=== PATIENT | male | born 1960 | race Hispanic/Latino ===

== ENCOUNTER 2019-01-27 08:13 | Day surgery (SDC) | payer MEDICAID ==
[~2019-01-27] VITALS: Ht 154.9 cm; Wt 57.1 kg
[~2019-01-27 08:13] MED LIST: SODIUM CHLORIDE 0.9% 1000ML 1,000 ML IV ONE
[2019-01-27 09:11] VITALS: BP 116/76
[2019-01-27] MEDS ORDERED: PROPOFOL 10 MG/ML 20ML VIAL IV ONE (10:32)
[2019-01-27] MEDS ORDERED: LIDOCAINE HCL 1% 20 ML VIAL ONE (10:33)
[2019-01-27 10:46] VITALS: BP 92/72
[2019-01-27 10:51] VITALS: BP 90/69
[2019-01-27 10:56] VITALS: BP 111/73
[2019-01-27 11:05] VITALS: BP 110/74
== END 2019-01-27 11:15 | disposition home or self-care (01) ==
LOC: ENDO 08:13 → DAH 08:13 → ENDO 11:15
PROVIDERS: ATTEND Internal Medicine Gastroenterology
DX: K76.6 Portal hypertension (principal); K74.60 Unspecified cirrhosis of liver; K31.89 Other diseases of stomach and duodenum; R13.10 Dysphagia, unspecified; R18.8 Other ascites; B18.2 Chronic viral hepatitis C; F10.20 Alcohol dependence, uncomplicated; F41.9 Anxiety disorder, unspecified; F32.9 Major depressive disorder, single episode, unspecified; Z80.0 Family history of malignant neoplasm of digestive organs; Z87.891 Personal history of nicotine dependence; Z88.5 Allergy status to narcotic agent; Z88.8 Allergy status to other drugs, medicaments and biological substances; Z79.899 Other long term (current) drug therapy
CPT/HCPCS: 43235; A4606; J2704; J7030; 43239

== ENCOUNTER → 2019-06-22 | Outpatient (CLI) | payer MEDICAID | END | disposition home or self-care (01) | LOC: RAH 11:01 | PROVIDERS: ATTEND Family Medicine | DX: R07.81 Pleurodynia (principal) | CPT/HCPCS: 71100 ==

== ENCOUNTER → 2019-07-24 | Outpatient (CLI) | payer MEDICAID | END | disposition home or self-care (01) | LOC: RAH 11:19 | PROVIDERS: ATTEND Family Medicine | DX: M19.032 Primary osteoarthritis, left wrist (principal); M21.932 Unspecified acquired deformity of left forearm | CPT/HCPCS: 73110 ==